=== PATIENT | female | born 1990 | race Hispanic/Latino ===

== ENCOUNTER 2018-06-12 21:03 | Emergency (ER) | payer BC, OTHER ==
[2018-06-12 23:42] LABS: BASO # 0.1 K/uL (0.0-0.2); BASO % 0.9 % (0.0-2.0); EOS # 0.2 K/uL (0.0-0.7); EOS % 1.9 % (0.0-4.0); HEMOGLOBIN 14.4 g/dL (12.0-16.0); LYMPH # 2.8 K/uL (1.0-4.3); LYMPH % 24.9 % (20.0-40.0); MEAN CORPUSCULAR HEMOGLOBIN 31.2 pg (27.0-31.0); MEAN CORPUSCULAR HGB CONC 33.9 g/dL (33.0-37.0); MEAN PLATELET VOLUME 7.4 fl (7.2-11.7); MONO # 0.9 K/uL (0.0-0.8); MONO % 7.6 % (0.0-10.0); NEUT # 7.3 K/uL (1.8-7.0); NEUT % 64.7 % (50.0-75.0); NRBC % 0.1 % (0.0-0.0); RBC 4.63 Mil/uL (3.80-5.20); RED CELL DISTRIBUTION WIDTH 12.7 % (11.5-14.5); WHITE BLOOD COUNT 11.3 K/uL (4.8-10.8)
[2018-06-12 23:51] LABS: ALBUMIN 4.8 g/dL (3.5-5.0); CALCIUM 10.1 mg/dL (8.4-10.2); GFR AFRICAN-AMERICAN > 60; GFR NON-AFRICAN AMERICAN > 60; LIPASE 75 U/L (23-300)
[2018-06-12 23:54] LABS: ALT/SGPT 81 U/L (9-52); AST/SGOT 65 U/L (14-36); BLOOD UREA NITROGEN 8 mg/dl (7-17)
--- NOTE | 2018-06-13 00:01 | ED PDOC ---
HPI: Abdomen Time Seen by Provider: 06/12/18 21:30 Chief Complaint (Nursing): Abdominal Pain Chief Complaint (Provider): Abdominal Pain Additional Complaint(s): Patient is a 27 y/o female with history of fatty liver and PCOS who presents to the ED for evaluation of upper abdominal pain for the past x2 days. Patient describes the pain as intermittent and is aching; she rates it a 7/10 pain when most severe. Patient also reports an associated sensation of feeling bloated that is unrelieved by anti-acids at home. She was seen by [facility] prior to arrival and was advised to go the ER for US evaluation. She denies fever, chills, nausea, vomiting, diarrhea, cough, shortness of breath, chest pain, urinary symptoms, vaginal bleeding or discharge, sick contacts, or recent travel. PMD: [place] Abnormal Vaginal Bleeding: No Last Menstral Period: 05/14/18 Past Medical History Reviewed: Historical Data, Nursing Documentation, Vital Signs Vital Signs: Last Vital Signs Temp 98.4 F 06/13/18 02:25 Pulse 84 06/13/18 02:25 Resp 18 06/13/18 02:25 BP 118/79 06/13/18 02:25 Pulse Ox 97 06/16/18 04:27 - Medical History Other PMH: Fatty liver, PCOS - Surgical History Surgical History: No Surg Hx - Family History Family History: States: Unknown Family Hx - Home Medications Home Medications: Ambulatory Orders Medication Instructions Recorded Control 1 tab PO DAILY #0 01/16/16 Propranolol [Propranolol HCl] 10 mg PO TID #24 tab 01/16/16 Dicyclomine [Dicyclomine HCl] 10 mg PO TID PRN #12 cap 02/28/16 Ondansetron [Zofran] 4 mg PO Q6H PRN #10 tab 02/28/16 Ranitidine HCl [Zantac 150] 150 mg PO BID #20 tab 02/28/16 Famotidine [Pepcid] 40 mg PO DAILY #14 tablet 06/13/18 - Allergies Allergies/Adverse Reactions: Allergies Allergy/AdvReac Type Severity Reaction Status Date / Time lactose AdvReac VOMITING Verified 06/12/18 21:24 Review of Systems ROS Statement: Except As Marked, All Systems Reviewed And Found Negative Constitutional: Negative for: Fever, Chills Cardiovascular: Negative for: Chest Pain Respiratory: Negative for: Cough, Shortness of Breath Gastrointestinal: Positive for: Abdominal Pain. Negative for: Nausea, Vomiting , Diarrhea Genitourinary Female: Negative for: Dysuria, Frequency, Incontinence, Vaginal Discharge, Vaginal Bleeding Physical Exam - Reviewed Nursing Documentation Reviewed: Yes Vital Signs Reviewed: Yes - Physical Exam Comments: GENERAL APPEARANCE: Patient is awake, alert, oriented x 3, resting comfortably and in no acute distress. On laptop. SKIN: Warm, dry; (-) cyanosis. EYES: (-) conjunctival pallor, (-) scleral icterus. ENMT: Mucous membranes moist. Airway patent, (-) stridor. NECK: Supple, FROM (-) tenderness, (-) stiffness, (-) lymphadenopathy. CHEST AND RESPIRATORY: (-) rales, (-) rhonchi, (-) wheezes; breath sounds equal bilaterally. Respirations even and nonlabored, speaking in full sentences. HEART AND CARDIOVASCULAR: (-) irregularity ABDOMEN AND GI: Soft (-) distention. Bowel sounds active x4; (+) mild tenderness in LUQ and RUQ (-) guarding, (-) rebound (-) CVA tenderness. EXTREMITIES: (-) deformity NEURO AND PSYCH: Mental status as above; (-) focal findings (-) facial asymmetry. Gait steady, speech clear. (-) aphasia - Laboratory Results Result Diagrams: 06/12/18 23:30 06/12/18 23:30 Urine POC: Negative Urine dip results: Positive for: Blood (trace). Negative for: Leukocyte Esterase, Nitrate, Ketones, Glucose, Bilirubin, Protein - ECG O2 Sat by Pulse Oximetry: 97 (RA) Pulse Ox Interpretation: Normal Medical Decision Making Medical Decision Making: Time: 21:41 Impression: Abdominal pain, r/o gall bladder disease Initial Plan: --CMP --Lipase --CBC w/ diff --Pepcid IVP --Toradol IVP --US Abdomen Patient reports her LFTs usually run between 60-100. 0000 U/S report reviewed EXAM: US Abdomen Complete CLINICAL HISTORY: 27 years old, female; Pain; Abdominal pain; Generalized; Additional info: Ruq and luq pain, R/O gallbladder disease TECHNIQUE: Real-time ultrasound of the abdomen (complete) with image documentation. COMPARISON: No relevant prior studies available. FINDINGS: Liver: Enlarged, 20.3 cm. Fatty infiltration. No definite mass. No intrahepatic ductal dilatation. Gallbladder: No gallstones. No wall thickening. No pericholecystic fluid. No sonographic Bolton's sign. Common bile duct: No dilatation. No stones. Pancreas: Unremarkable as visualized. Kidneys: Normal echogenicity. No significant hydronephrosis. Spleen: No splenomegaly. Aorta: Unremarkable. No aneurysm. Inferior vena cava: Unremarkable. Free fluid: No significant free fluid. IMPRESSION: 1. No acute findings. 2. Non-acute findings are described above. Thank you for allowing us to participate in the care of your patient. Dictated and Authenticated by: Edmund Harrison MD 06/12/2018 11:40 PM Eastern Time ([place] & [place]) 0020 CBC reviewed and grossly unremarkable. Lipase 75 CMP with slight elevation of LFTs which is consistent with prior levels per patient. Pending urine specimen. 0030 Repeat HR: 108 Udip reviewed (-) evidence of UTI (+) trace blood. U/A and U/C ordered. Upreg: negative 0100 Repeat HR: 104 Pending U/A. 0210 Repeat HR: 85 U/A reviewed (+) trace leukocytes. Urine culture pending. On re-evaluation, patient reports resolution of symptoms. Tolerating PO intake. On exam, patient remains AAOx3, in no acute distress. Lungs clear to auscultation, cardiac RRR, abdomen soft, non-tender, repeat neuro exam shows no focal findings. VSS, stable for discharge. Lab/Diagnostic results d/w the patient in great detail. Diagnosis of abdominal pain, fatty liver d/w the patient. Based on history, exam and diagnostic results, plan will be for outpatient follow up with PMD/GI. Patient instructed to follow-up with pmd / referral provided / the clinic in 1- 2 days without fail. Advised to take medication as prescribed. Return to the emergency room at any time for any new or worsening symptoms. Patient states she fully agrees with and understands discharge instructions. States that she agrees with the plan and disposition. Verbalized and repeated discharge instructions and plan. I have given the patient opportunity to ask any additional questions. Scribe Attestation: Documented by Earl Higgins, acting as a scribe for Radha Chapa PA-C. Provider Scribe Attestation: All medical record entries made by the Scribe were at my direction and personally dictated by me. I have reviewed the chart and agree that the record accurately reflects my personal performance of the history, physical exam, medical decision making, and the department course for this patient. I have also personally directed, reviewed, and agree with the discharge Disposition - Clinical Impression Clinical Impression: Abdominal pain in female, Fatty liver - Patient ED Disposition Is Patient to be Admitted: No Counseled Patient/Family Regarding: Studies Performed, Diagnosis, Need For Followup, Rx Given - Disposition Referrals: Larry Pillai MD, PhD [Staff Provider] - Lindsey Oquendo MD [Medical Doctor] - Disposition: Routine/Home Disposition Time: 02:15 Condition: STABLE Additional Instructions: The emergency medical care you received today was directed towards the acute presenting symptoms. If you were prescribed any medication, please fill it and give as directed. It may take several days for your symptoms to resolve. Return to the Emergency Department at any time if symptoms worsen, do not improve, or if any other problems arise. Please contact your doctor in 2 days for re-evaluation and follow up / or call one of the physicians/clinics you have been referred to that are listed on the Patient Visit Information form that is included in your discharge packet. Bring any paperwork you were given at discharge with you along with any medications to your follow up visit. Our treatment cannot replace ongoing medical care by a primary care provider (PCP) outside of the emergency department. Prescriptions: Famotidine [Pepcid] 40 mg PO DAILY #14 tablet Instructions: Nausea and Vomiting, Adult (DC), Nonalcoholic Fatty Liver Disease (DC) Forms: [employer] (Nicaraguan) Print Language: KHMER - POA Present On Arrival: None Results - Lab Results Lab Results: 08/17/18 08/16/18 08/16/18 01:28 23:30 23:30 WBC 11.3 H RBC 4.63 Hgb 14.4 Hct 42.6 MCV 92.0 D MCH 31.2 H MCHC 33.9 RDW 12.7 Plt Count 258 MPV 7.4 Neut % (Auto) 64.7 Lymph % (Auto) 24.9 [place] % (Auto) 7.6 Eos % (Auto) 1.9 Baso % (Auto) 0.9 Neut # (Auto) 7.3 H Lymph # (Auto) 2.8 [place] # (Auto) 0.9 H Eos # (Auto) 0.2 Baso # (Auto) 0.1 Sodium 139 Potassium 4.8 Chloride 101 Carbon Dioxide 27 Anion Gap 16 BUN 8 Creatinine 0.5 L Est GFR ( Amer) > 60 Est GFR (Non-Af Amer) > 60 Random Glucose 105 Calcium 10.1 Total Bilirubin 0.8 AST 65 H ALT 81 H D Alkaline Phosphatase 121 Total Protein 9.5 H Albumin 4.8 Globulin 4.7 H Albumin/Globulin Ratio 1.0 Lipase 75 Urine Color Yellow Urine Clarity Cloudy Urine pH 6.0 Ur Specific [place] 1.020 Urine Protein Negative Urine Glucose (UA) Neg Urine Ketones Negative Urine Blood Negative Urine Nitrate Negative Urine Bilirubin Negative Urine Urobilinogen 0.2-1.0 Ur Leukocyte Esterase Trace Urine RBC (Auto) 4 H Urine Microscopic WBC 3 Ur Squamous Epith Cells 6 H Urine Bacteria Occ H
[2018-06-13 00:32] VITALS: RESP 18; TEMP 98.4
[2018-06-13 00:34] VITALS: O2SAT 97
[2018-06-13 01:40] LABS: SQUAMOUS EPITHIAL 6 /hpf (0-5); URINE BACTERIA OCC (<OCC); URINE BILIRUBIN NEGATIVE (NEGATIVE); URINE BLOOD NEGATIVE (NEGATIVE); URINE CLARITY CLOUDY (Clear); URINE COLOR YELLOW (YELLOW); URINE GLUCOSE (UA) NEG (Normal); URINE LEUKOCYTE ESTERASE TRACE Leu/uL (Negative); URINE PROTEIN NEGATIVE (NEGATIVE); URINE UROBILINOGEN 0.2-1.0 mg/dL (0.2-1.0)
[2018-06-13 02:52] VITALS: BP 118/79; PULSE 84
--- NOTE | 2018-06-13 09:37 | US ---
Date of service: 06/12/2018 HISTORY: RUQ and LUQ pain, r/o gallbladder disease COMPARISON: None. TECHNIQUE: Sonographic evaluation of the abdomen. FINDINGS: LIVER: Measures 20.3 cm. Diffusely increased echogenicity of the liver parenchyma. Consistent with fatty infiltration. Smooth contour. No mass. No biliary ductal dilatation. GALLBLADDER: Unremarkable. No gallstones. COMMON BILE DUCT: Measures 4 mm. No stones. No dilatation. PANCREAS: Unremarkable as visualized. No mass. No ductal dilatation. RIGHT KIDNEY: Measures 11.6cm. Normal echogenicity. No calculus, mass, or hydronephrosis. LEFT KIDNEY: Measures 11.1cm. Normal echogenicity. No calculus, mass, or hydronephrosis. SPLEEN: Normal in size and contour. No mass. AORTA: No aneurysmal dilatation. IVC: Unremarkable. OTHER FINDINGS: None. IMPRESSION: Hepatomegaly with fatty infiltration of the liver. Otherwise unremarkable examination. The preliminary findings for this examination were reported by [facility] at 11:40 p.m. on 06/12/2018. There is concurrence of this report with the preliminary findings.
== END 2018-06-13 02:25 | disposition home or self-care (01) ==
LOC: H.ER 21:03
DX: R10.10 Upper abdominal pain, unspecified (principal); K76.0 Fatty (change of) liver, not elsewhere classified; E28.2 Polycystic ovarian syndrome